=== PATIENT | female | born 1960 | race Caucasian/White ===

== ENCOUNTER 2018-03-28 08:07 | Observation (INO) | payer MEDICAID ==
--- NOTE | 2018-03-26 19:47 | PREOPHP ---
DATE OF ADMISSION: 03/28/2018 Scheduled for surgery on 03/28/2018. 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 The patient presented with a 2.3 cm mass in the left breast upper outer quadrant near the periphery of the breast and core biopsy revealed we ll-differentiated invasive ductal and lobular carcinoma. The tumor was estrogen and progesterone rec eptor positive and HER-2 negative. She has a strong family history of breast cancer. The patient connolly d a bronchoscopy test that was negative. She was discussed with the medical oncology and the decisio n was made that there was no indication for preoperative chemotherapy even though it is known that sh willi has positive axillary node metastases. PAST MEDICAL HISTORY: MEDICATIONS: None. ALLERGIES: NONE. PAST SURGICAL HISTORY: section. SOCIAL HISTORY: She is 2, para 3. PHYSICAL EXAMINATION: VITAL SIGNS: The patient is 5 feet 7 inches, 192 pounds with stable vital signs. HEENT: Within normal limits. LUNGS: Clear. HEART: Regular rate, rhythm. BREASTS: Right breast is unremarkable. Left breast has a 2 cm palpable mass at 1 o'clock, approxima tely 6 cm from the nipple in the upper outer quadrant. There is no palpable lymphadenopathy. ABDOMEN: Soft. PELVIC AND RECTAL: Per primary care. EXTREMITIES: Without edema. NEUROLOGIC: Physiologic. IMPRESSION: Invasive ductal and lobular carcinoma left metastatic to left axillary lymph nodes. PLAN: Left breast partial mastectomy and left axillary lymph node dissection. Full discussion has margarette samuels had with the patient regarding the nature of the condition and the nature of the surgery, indicat ions, alternatives, options and risks including bleeding, infection, need for additional surgery base d on final pathology, need for additional treatments including possible chemotherapy and/or radiation therapy and hormonal blockade, scarring, deformity of the breast, neuritis or neuralgia swelling of the arm, et cetera. All questions have been answered. The patient understands and agrees to proceed . Dictated By: MAGY TERRAZAS/ESTELITA Conf#: [id number] DID#: [id number]
[2018-03-27 12:41] VITALS: Ht 170.2 cm; Wt 88.2 kg
[2018-03-28] VITALS (23 sets, daily range): BP systolic 117–146; BP diastolic 64–84; PULSE 62–78; RESP 11–23
[~2018-03-28] VITALS: Ht 170.2 cm; Wt 88.2 kg
[~2018-03-28 08:07] MED LIST: CEFAZOLIN 2 GM/50 ML (PMX) 50 ML IVPB ONE; LIDOCAINE 2% (SDV) 5 ML INJ ONE; SOD CHLORIDE 0.9% 1,000 ML IV SCH
--- NOTE | 2018-03-28 08:59 | HPN ---
Date/Time of Note Date/Time of Note DATE: 03/28/18 TIME: 08:59 Interval H&P Admission Note Pt. seen H&P reviewed: No system changes MAGY YI Mar 28, 2018 08:59
--- NOTE | 2018-03-28 10:42 | PREAC ---
Date/Time of Note Date/Time of Note DATE: 03/28/18 TIME: 10:41 Anesthesia Eval and Record Evaluation Time Pre-Procedure Interview DATE: 03/28/18 TIME: 10:41 Age 58 Sex female NPO: 8 hrs Preoperative diagnosis L breast ca Planned procedure L partial mastectomy Past Medical History Past Medical History: Includes GI: Obesity Surgery & Anesthesia Issues No known issue Meds Anticoagulation: No Beta Sean within 24 hr: No Reason Beta Sean not given: Pt. not on B-Sean No Active Prescriptions or Reported Meds Current Medications Sodium Chloride 1,000 ml @ 75 mls/hr [id number] IV ; Start 03/28/18 at 07:00 Influenza Virus Vaccine Quadrival (Fluzone) 0.5 ml ONCE ONCE IM* ; Start 03/29/18 at 09:00; Stop 03/29/18 at 09:01 Meds reviewed: Yes Allergies Coded Allergies: No Known Allergy (Unverified , 03/28/18) Allergies Reviewed: Yes Labs/Studies Labs Reviewed: Reviewed by anesthesiologist test: Negative Pre-procedure Exam Last vitals Vital Signs Date Temp Pulse Resp B/P (MAP) Pulse Ox O2 O2 Flow FiO2 Time Delivery Rate 03/28/18 98.5 71 16 141/84 99 Room Air 09:20 (103) Airway: Adequate mouth opening, Adequate thyromental dist Mallampati: Mallampati II Teeth: Normal Lung: Normal Heart: Normal ASA Physical Status ASA physical status: 2 Emergency: None Pre-operative Attestations Prior to commencing anesthesia and surgery, the patient was re-evaluated, there was verification of: *The patient's identity *The results of appropriate recent lab work and preoperative vital signs *The above evaluation not changing prior to induction *Anesthetic plan, risk benefits, alternative and complications discussed with patient/family; questions answered; patient/family understands, accepts and wishes to proceed. CHA ANGEL Mar 28, 2018 10:42
[2018-03-28] MEDS ORDERED: METOCLOPRAMIDE 10 MG INJ IV PRN (11:00)
[2018-03-28] MEDS ORDERED: HYDROmorphONE 1 MG/5 ML IV SYRINGE IV PRN ×3 (11:00)
[2018-03-28] MEDS ORDERED: FENTAnyl 50 MCG/ML VIAL IV PRN ×3 (11:00)
[2018-03-28] MEDS ORDERED: DIPHENHYDRAMINE 50 MG INJ IV PRN ×2 (11:00→13:00)
[2018-03-28] MEDS ORDERED: ALBUTEROL 0.083% (NEB) 2.5 MG/3 ML AMP HHN PRN (11:00)
[2018-03-28] MEDS ORDERED: ONDANSETRON 4 MG INJ IV PRN ×2 (11:00→13:00)
[2018-03-28] MEDS ORDERED: MEPERIDINE 25 MG INJ IV PRN (11:00)
[2018-03-28] MEDS ORDERED: FENTAnyl 50 MCG/ML VIAL ONE (11:07)
[2018-03-28] MEDS ORDERED: PROPOFOL 20 ML ONE (11:23)
[2018-03-28] MEDS ORDERED: SUCCINYLCHOLINE CHLORIDE 100 MG/5 ML SYG IV ONE (11:23)
[2018-03-28] MEDS ORDERED: ROCURONIUM 50 MG INJ ONE (11:23)
[2018-03-28] MEDS ORDERED: GLYCOPYRROLATE 0.4 MG INJ ONE (11:23)
[2018-03-28] MEDS ORDERED: NEOSTIGMINE 3 MG/3 ML SYRINGE ONE (11:23)
[2018-03-28] MEDS ORDERED: CEFAZOLIN 1 GM INJ ONE (11:23)
[2018-03-28] MEDS ORDERED: POLYMYXIN/BACITRACIN 1L IRRIG IRR ONE (11:59)
--- NOTE | 2018-03-28 12:43 | SIPON ---
Date/Time of Note Date/Time of Note DATE: 03/28/18 TIME: 12:41 Operative Report Preoperative Diagnosis invasive ductal and lobular carcinoma left breast Postoperative Diagnosis same Operation/Procedure Performed left breast partial mastectomy and left axillary lymph node dissection Surgeon see signature line financial services assistant none Anesthesia: general Estimated blood loss: minimal Transfusion Required none Specimen left breast carcinoma and left axillary nodes Grafts/Implants none Complications none MAGY YI Mar 28, 2018 12:42
[2018-03-28] MEDS ORDERED: POLYMYXIN/BACITRACIN 1L IRRIG ONE (12:47)
[2018-03-28] MEDS ORDERED: HYDROmorphONE 1 MG/ML SYG SC PRN (13:00)
[2018-03-28] MEDS ORDERED: ACETAMINOPHEN 325 MG TAB PO PRN (13:00)
[2018-03-28] MEDS: CEFAZOLIN 2 GM/50 ML (PMX) 50 ML IVPB SCH ×2 (13:41→21:39)
--- NOTE | 2018-03-28 14:13 | OPR ---
DATE OF OPERATION: 03/28/2018 SURGEON: Magy Staley MD LEAD SHIPPER: None. ANESTHESIOLOGIST: Fer Finn MD TYPE OF ANESTHESIA: General. PREOPERATIVE DIAGNOSIS: Invasive ductal and lobular carcinoma, left breast. POSTOPERATIVE DIAGNOSIS: Invasive ductal and lobular carcinoma, left breast. OPERATION PERFORMED: Left breast partial mastectomy and left axillary lymph node dissection. DESCRIPTION OF PROCEDURE: The patient was taken to the operating room and under general anesthesia with sequential compression device stockings in place, she was prepped and draped in the usual fashion. The palpable mass was located in the upper outer quadrant of the left breast at the 1 o'clock position 6cm from the nipple. A transverse curvilinear breast incision was made, achieving hemostasis with cautery. Flaps were dissected circumferentially. The palpable hard mass was resected with a wide margin of normal breast tissue orienting the specimen anteriorly, superiorly and medially. It was irrigated with sterile water and hemostasis secured with cautery. The pathologist reported the margins were clear, although somewhat close inferiorly. After ascertaining that hemostasis was secure, the incision was closed with interrupted 3-0 Vicryl sutures followed by continuous 4-0 Monocryl subcuticular suture. Then, a left axillary incision was made transversely and using cautery, the clavipectoral fascia was incised. The lower level axillary contents were excised using LigaSure device. The field was irrigated and hemostasis was secured. Specimen was given to pathology which confirmed the presence of multiple lymph nodes. Through a separate stab incision inferiorly, a flat Clarence-Rushing drain was placed into the axilla and sutured to the skin with 2-0 silk. After ascertaining that hemostasis was secure the clavipectoral fascia was closed with interrupted 3-0 Vicryl, subcutaneous tissues closed with 3-0 and 4-0 Vicryl and the skin closed with 4-0 Monocryl continuous subcuticular suture. Mastisol and 1/2-inch Steri-Strips were applied to both incisions followed by dry sterile dressings. Final sponge and needle counts were correct. Post-partial mastectomy surgical brassiere was applied. The patient tolerated the procedure well and left the operating room in good condition. Dictated By: MAGY TERRAZAS/ESTELITA Conf#: [id number] DID#: [id number] MTDD
[2018-03-28] MEDS: D5W-0.45 NACL + KCL 20 MEQ 1,000 ML IV SCH ×2 (14:56→23:28)
[2018-03-28] MEDS: HYDROCODONE/APAP (5/325) TAB PO PRN (15:56)
[2018-03-29 01:49] VITALS: BP 125/70; RESP 19
[2018-03-29] MEDS: CEFAZOLIN 2 GM/50 ML (PMX) 50 ML IVPB SCH (05:06)
[2018-03-29] MEDS: HYDROCODONE/APAP (5/325) TAB PO PRN (07:24)
--- NOTE | 2018-03-29 08:40 | PN ---
Date/Time of Note Date/Time of Note DATE: 03/29/18 TIME: 08:39 Assessment/Plan Lines/Catheters IV Catheter Type (from Nrsg): Peripheral IV Subjective 24 Hr Interval Summary Additional Comments AVSS Comfortable with [place]. Tolerating ambulation and po intake. left breast and axilla incisions clean with intact steristrips ISHA 20cc overnight serosang Imp. Stable Plan: discharge with instructions/supplies given/discussed maintain ISHA drain andd record outputs Rx [place] 5/325 #24 f/u office 04/02 Exam/Review of Systems Vital Signs Vitals Vital Signs Date Temp Pulse Resp B/P (MAP) Pulse Ox O2 O2 Flow FiO2 Time Delivery Rate 03/29/18 98.4 19 125/70 97 Room Air 01:49 (88) 03/28/18 66 23:33 03/28/18 2.0 14:20 Intake and Output 03/28/18 03/28/18 03/29/18 1515:00 23:00 07:00 IntakeIntake Total 1100 ml 730 ml 1890 ml OutputOutput Total 5 ml 810 ml 420 ml BalanceBalance 1095 ml -80 ml 1470 ml MAGY YI Mar 29, 2018 08:40
[2018-03-29 08:45] VITALS: BP 142/84; PULSE 71; RESP 18
[2018-03-29] MEDS ORDERED: INFLUENZA VIRUS VACCINE 0.5 ML (DISPENSING) IM* ONE (09:00)
[2018-03-29] MEDS: D5W-0.45 NACL + KCL 20 MEQ 1,000 ML IV SCH (09:00)
--- NOTE | 2018-03-31 07:29 | PAC ---
Date/Time of Note Date/Time of Note DATE: 03/31/18 TIME: 07:29 Post-Anesthesia Notes Post-Anesthesia Note Last documented vital signs Vital Signs Date Temp Pulse Resp B/P (MAP) Pulse Ox O2 O2 Flow FiO2 Time Delivery Rate 03/29/18 98.1 71 18 142/84 100 Room Air 08:45 (103) 03/28/18 2.0 14:20 Activity: WNL Respiratory function: WNL Cardiovascular function: WNL Mental status: Baseline Pain reasonably controlled: Yes Hydration appropriate: Yes Nausea/Vomiting absent: Yes CHA ANGEL Mar 31, 2018 07:29
--- NOTE | 2018-04-11 13:53 | RADRPT ---
Vent Rate: 64 bpm RR Interval: 0 msec OR Interval: 142 msec QRS Duration: 82 msec QT Interval: 400 msec QTC Interval: 412 msec P-R-T [place]: 58 - 47 - 39 degrees Normal sinus rhythm Normal ECG Electronically Signed By: Eugenio Perez
== END 2018-03-29 10:25 | disposition home or self-care (01) ==
LOC: SDS 08:07 → REC 12:50 → MS1 13:59
PROVIDERS: ADMIT Surgery; ATTEND Surgery
DX: C50.412 Malignant neoplasm of upper-outer quadrant of left female breast (principal); C77.3 Secondary and unspecified malignant neoplasm of axilla and upper limb lymph nodes; Z17.0 Estrogen receptor positive status [ER+]
CPT/HCPCS: 19301; 38525; 71045; 88307; 93005; J0690; J2175; J2405; J2710; J3010; J3480; Z7500; Z7512; Z7610; G0378

== ENCOUNTER → 2018-05-23 | Day surgery (SDC) | payer MEDICAID ==
[~2018-05-23] VITALS: Ht 170.2 cm; Wt 86.5 kg
[2018-05-23] VITALS (9 sets, daily range): BP systolic 111–140; BP diastolic 58–79; PULSE 62–69; RESP 14–18; Ht 170.2 cm; Wt 86.5 kg
[~2018-05-23] MED LIST changes: +CEFAZOLIN 1 GM/50 ML (PMX) 50 ML IVPB ONE; -CEFAZOLIN 2 GM/50 ML (PMX) 50 ML IVPB ONE; +FENTAnyl 50 MCG/ML VIAL ONE; +HEPARIN 1000 UNITS/ML 10 ML INJ ONE; +HYDROCODONE/APAP (5/325) TAB PO PRN; +LIDOCAINE 1%/EPI (1:100,000) (MDV) 20 ML ONE; -LIDOCAINE 2% (SDV) 5 ML INJ ONE; +MIDAZOLAM 1 MG/ML 2 ML INJ ONE; +POLYMYXIN/BACITRACIN 1L IRRIG IRR ONE
--- NOTE | 2018-05-23 07:54 | HPN ---
Date/Time of Note Date/Time of Note DATE: 05/23/18 TIME: 07:54 Interval H&P Admission Note Pt. seen H&P reviewed: No system changes KYRA BOJORQUEZ MD May 23, 2018 07:54
== END | disposition home or self-care (01) ==
LOC: SDS 06:55
PROVIDERS: ATTEND Internal Medicine Hematology & Oncology
DX: C50.912 Malignant neoplasm of unspecified site of left female breast (principal)
CPT/HCPCS: 36561; 76942; C1788; J0690; J1644; J2250; J3010; Z7610